=== PATIENT | male | born 1990 | race Caucasian/White ===

== ENCOUNTER 2016-10-23 03:29 | Emergency (ER) | payer SELFPAY ==
[~2016-10-23 03:29] MED LIST: AMOXICILLIN500 M1 PO; NO MEDICATIONS
== END 2016-10-23 04:05 | disposition home or self-care (01) ==
LOC: CED 03:29
DX: K04.7 Periapical abscess without sinus (principal); F17.210 Nicotine dependence, cigarettes, uncomplicated
CPT/HCPCS: 99282

== ENCOUNTER 2017-02-20 20:57 | Emergency (ER) | payer SELFPAY | END 2017-02-20 21:00 | disposition left against medical advice (07) | LOC: CED 20:57 | DX: Z53.21 Procedure and treatment not carried out due to patient leaving prior to being seen by health care provider (principal) ==

== ENCOUNTER 2017-03-21 17:25 | Emergency (ER) | payer OTHER ==
[~2017-03-21] VITALS: Ht 182.9 cm; Wt 72.6 kg
== END 2017-03-21 17:44 | disposition left against medical advice (07) ==
LOC: CED 17:25
DX: T40.1X1A Poisoning by heroin, accidental (unintentional), initial encounter (principal); F17.210 Nicotine dependence, cigarettes, uncomplicated; Z88.8 Allergy status to other drugs, medicaments and biological substances
CPT/HCPCS: 99284